=== PATIENT | female | born 1960 | race Caucasian/White ===

== ENCOUNTER 2021-05-18 20:03 | Day surgery (SDCO) | payer OTHER ==
[~2021-05-18] VITALS: Ht 167.6 cm; Wt 103.9 kg
[~2021-05-18 20:03] MED LIST: ASPIRIN EC81 MG PO; B COMPLEX1 EACH PO; BUSPIRONE HCL15 MG PO; CERTAGEN1 EACH PO; CHANTIX1 EACH PO; CITRACAL + BON1 EACH PO; CLARITIN10 MG PO; COLACE100 MG PO; COLESTID1 GM PO; CYMBALTA 30MG C30 MG PO; DICYCLOMINE HCL20 MG PO; DOXEPIN HCL50 MG PO; FLONASE ALLER15.8 ML; GLIPIZIDE ER5 MG PO; JANUVIA50 MG PO; LISINOPRIL-HCT1 EAC1 PO; LOPRESSOR50 MG PO; MAXIMUM RED KR1 EACH PO; MELOXICAM15 MG PO; METFORMIN HCL500 MG PO; NITROSTAT0.4 MG SL; PROBIOTIC1 EAC1 PO; PROTONIX 40MG T40 MG PO; SINGULAIR10 MG PO; SYNTHROID50 MCG PO; VIBRAMYCIN100 MG PO; VITAMIN D2000 UNIT PO; ZOCOR20 MG PO
[2021-05-18 21:45] LABS: BASOPHIL 0.4 % (0-2); EOSINOPHIL 0.4 % (0-5); HCT 48.5 % (37.0-47.0); HGB 16.8 g/dl (12.5-16.0); LYMPHOCYTE 12.7 % (15-48); MCH 31.1 pg (25.0-31.0); MCHC 34.6 g/dL (32.0-36.0); MCV 89.6 fL (78.0-100.0); MONOCYTE 7.1 % (0-12); NRBC 0; PLT 253 K/uL (150-400); RBC 5.41 M/uL (4.20-5.40); RDW 12.3 % (11.5-14.0); WBC 18.8 K/uL (4.0-10.5)
[2021-05-18 21:56] LABS: ALBUMIN 3.9 g/dL (3.4-5.0); BILIRUBIN - TOTAL 0.7 mg/dL (0.2-1.0); BUN/CREAT RATIO (CALC) 13.1 RATIO; CREATININE 1.07 mg/dL (0.51-0.95); GLOBULIN (CALCULATION) 4.1 g/dL; POTASSIUM 3.7 mmol/L (3.5-5.1)
[2021-05-18 22:35] LABS: CORONAVIRUS 2019 SARS-COV-2 NEGATIVE (NEGATIVE); INFLUENZA A NAA NEGATIVE (NEGATIVE)
[2021-05-18 23:55] LABS: BILIRUBIN NEGATIVE (NEGATIVE); BLOOD NEGATIVE Ery/uL (NEGATIVE); CLARITY CLEAR (CLEAR); COLOR YELLOW (YELLOW); GLUCOSE (U) NORMAL (NORMAL); LEUKOCYTES NEGATIVE Leu/uL (NEGATIVE); NITRITE NEGATIVE (NEGATIVE); PROTEIN NEGATIVE (NEGATIVE); SPECIFIC GRAVITY <=1.005 (1.001-1.030); UROBILINOGEN 0.2 mg/dL (0.2-1.0); pH 5.5 (5.0-9.0)
[2021-05-19] MEDS ORDERED: XYZAL5 MG PO (00:25)
[2021-05-19] MEDS ORDERED: CELEBREX **OUT100 MG PO (00:26)
[2021-05-19] MEDS ORDERED: GLUCOTROL5 MG PO (00:26)
[2021-05-19] MEDS ORDERED: LISINOPRIL-HCT1 EACH PO (00:28)
[2021-05-19] MEDS ORDERED: LOPRESSOR50 MG PO (00:28)
[2021-05-19 04:07] LABS: BASOPHIL 0.4 % (0-2); EOSINOPHIL 0.8 % (0-5); HGB 14.4 g/dl (12.5-16.0); LYMPHOCYTE 22.1 % (15-48); MCHC 34.3 g/dL (32.0-36.0); MCV 90.3 fL (78.0-100.0); MONOCYTE 7.8 % (0-12); NEUTROPHIL 68.6 % (41-80); NRBC 0; PLT 172 K/uL (150-400); RBC 4.65 M/uL (4.20-5.40); RDW 12.4 % (11.5-14.0); WBC 11.8 K/uL (4.0-10.5)
[2021-05-19 04:31] LABS: BUN/CREAT RATIO (CALC) 14.9 RATIO; CREATININE 0.87 mg/dL (0.51-0.95); MAGNESIUM 1.3 mg/dL (1.8-2.4); POTASSIUM 4.6 mmol/L (3.5-5.1)
--- NOTE | 2021-05-19 13:42 | NUR ---
05/19/21 Ms. Whitman and her S.O. share a subsidized rent apartment. They do not drive. Patient will need assistance to arrange transportation home via [employer] or cab voucher. - Report given to PONCE Shirley RN.
--- NOTE | 2021-05-19 15:55 | NUR ---
1345 PATIENT REQUESTING TO SPEAK WITH PHYSICIAN. DR GARNER NOTIFIED VIA TELEPHONE, ORDERED CLEAR LIQUID DIET AND WILL COME SEE PATIENT IN "AN HOUR OR SO." 1520 PATIENT STILL REQUESTING TO SPEAK WITH MD. DR GARNER NOTIFIED VIA TELEPHNE AGAIN AND DR BERTRAND INFORMED. PATIENT STATES IF SHE CANNOT LEAVE SOON, SHE HAS TO SIGN OUT AMA BECAUSE SHE HAS "A SMALL DOG AT HOME AND WE DONT HAVE AIR CONDITIONING." 1548 PATIENT REQUESTING TO SIGN OUT AMA, PATIENT EXPLAINED THAT IT WOULD BE INHER BEST INTEREST TO STAY AND TALK TO THE PHYSICIAN BUT PATIENT REFUSING TO STAY. AMA PAPER SIGNED AND [facility], [employer] MACHINE OPERATOR, SET UP CAB TO TAKE PATIENT HOME. DR BERTRAND NOTIFIED OF PATIENT LEAVING.
== END 2021-05-19 15:48 | disposition left against medical advice (07) ==
LOC: FER 20:03 → FTCU 23:43
PROVIDERS: Nurse Practitioner; Nurse Practitioner Family; ADMIT Internal Medicine
DX: K56.600 Partial intestinal obstruction, unspecified as to cause (principal); M54.9 Dorsalgia, unspecified; R42 Dizziness and giddiness; I10 Essential (primary) hypertension; E11.9 Type 2 diabetes mellitus without complications; Z98.51 Tubal ligation status; F17.210 Nicotine dependence, cigarettes, uncomplicated; Z20.822 Contact with and (suspected) exposure to COVID-19; K42.9 Umbilical hernia without obstruction or gangrene; E03.9 Hypothyroidism, unspecified; K64.9 Unspecified hemorrhoids; E83.42 Hypomagnesemia
CPT/HCPCS: 36415; 71045; 80048; 80053; 81003; 82962; 83605; 83735; 84145; 85025; 87040; C9113; G0378; J2270; J2765; J3475; J7030; J7050; Q9967; U0002